=== PATIENT | female | born 1935 | race Caucasian/White ===

== ENCOUNTER → 2017-11-13 | Outpatient (CLI) | payer OTHER | LOC: FIMAGING 12:38 | PROVIDERS: ATTEND Internal Medicine | DX: Z13.820 Encounter for screening for osteoporosis (principal); M81.0 Age-related osteoporosis without current pathological fracture; I70.0 Atherosclerosis of aorta; N18.9 Chronic kidney disease, unspecified; E83.52 Hypercalcemia; Z78.0 Asymptomatic menopausal state ==

== ENCOUNTER → 2017-12-19 | Outpatient (CLI) | payer OTHER | LOC: CIMAGING 11:30 | PROVIDERS: ATTEND Internal Medicine | DX: M51.36 Other intervertebral disc degeneration, lumbar region (principal); M46.97 Unspecified inflammatory spondylopathy, lumbosacral region; I70.0 Atherosclerosis of aorta; M81.0 Age-related osteoporosis without current pathological fracture | CPT/HCPCS: 72100-PO ==

== ENCOUNTER 2018-01-17 14:06 | Observation (INO) | payer OTHER ==
[2018-01-17] MEDS ORDERED: NS 500 ML IV ONE (14:08)
--- NOTE | 2018-01-17 14:37 | CPEKG ---
Heart Rate: 52 RR Interval: 1154 P-R Interval: 192 QRSD Interval: 70 QT Interval: 436 QTC Interval: 406 P [place]: 57 QRS [place]: 26 T Wave [place]: 56 EKG Severity - NORMAL ECG - EKG Impression: SINUS RHYTHM Electronically Signed By: Joao Weaver 20-Jan-2018 10:58:16
--- NOTE | 2018-01-17 15:05 | EDPHY ---
H & P Smoking Status: Never smoked Time Seen by Provider: 01/17/18 14:08 HPI/ROS: CHIEF COMPLAINT: Syncope HISTORY OF PRESENT ILLNESS: Patient sent from Dr. Bernabe's office up stairs for evaluation after syncopal episode today. Patient has history of Alzheimer's and lives at [facility]. This morning aids noted that she was wobbly on her way to breakfast. She was walking with assistance and"melted to the floor". She was lowered to the floor by the assistants and did not fall. The time that she was unconscious is described variably as"seconds to minutes". She did have diaphoresis at the time of this event. She did ultimately wake up and was back at her baseline which is moderate to severe dementia. There is no reported recent illnesses. Patient has had no fever. No report of chest pain, shortness of breath, nausea, vomiting, diarrhea or dysuria. She does state that she"goes quite often"when asked about urinary symptoms. Daughter states that she has been a little off lately in that she has been more fatigued. REVIEW OF SYSTEMS: Constitutional: No fever, no chills. Eyes: No discharge. ENT: No sore throat. Cardiovascular: No chest pain, no palpitations. Respiratory: No cough, no shortness of breath. Gastrointestinal: No abdominal pain, no vomiting. Genitourinary: No dysuria. Musculoskeletal: No back pain. Skin: No rashes. Neurological: No headache. General Appearance: Alert, slightly sleepy Eyes: Pupils equal and round no pallor or injection. ENT, Mouth: Mucous membranes moist. Respiratory: There are no retractions, lungs are clear to auscultation. Cardiovascular: Regular rate and rhythm. No peripheral edema. Gastrointestinal: Abdomen is soft and nontender, no masses, bowel sounds normal. Neurological: Awake, cooperative, following commands, no focal neurologic deficits. Cranial nerves intact. Normal strength all 4 extremities. Skin: Warm and dry, no rashes. Musculoskeletal: Neck is supple nontender. Extremities are symmetrical, full range of motion, no edema. Psychiatric: Patient is oriented to self,"at hospital", no agitation Medical/surgical history: Alzheimer's, osteoporosis, breast cancer, Paget's disease. Surgeries include rectal prolapse, multiple procedures for Paget's disease, appendicitis, mastectomy with reconstruction. Social history: Lives in assisted care facility no smoking. (Sheets,Genevieve L) Constitutional: Initial Vital Signs Temperature (C) 37 C 01/17/18 14:43 Heart Rate 52 L 01/17/18 14:43 Respiratory Rate 16 01/17/18 14:43 Blood Pressure 132/72 H 01/17/18 14:43 O2 Sat (%) 93 01/17/18 14:43 O2 Delivery Mode Room Air Allergies/Adverse Reactions: memantine HCl [From Namenda] Allergy (Verified 01/17/18 15:05) Home Medications: Medication Instructions Recorded Acetaminophen [Tylenol 325mg (OTC)] 650 mg PO Q6 PRN 02/03/13 Acetaminophen [Tylenol Tablet] 500 mg PO Q4 PRN 02/03/13 Cholecalciferol Vit D3 [Vitamin D3 1,000 units PO DAILY 02/03/13 1000 units (OTC)] Docusate Sodium [Colace 100 MG 100 mg PO BID 02/03/13 (OTC)] Polyethylene Glycol 3350 [Miralax 8 gm PO DAILY 02/03/13 17 gm (OTC)] Fiber [Fiber Diet] 2 each PO DAILY 02/06/13 Magnesium Hydroxide [Milk of 30 ml PO DAILY PRN #300 ml 04/19/16 Magnesia (*)] Alendronate Sodium [Fosamax 70 MG 70 mg PO JUSTIN@0700 01/17/18 (*)] Donepezil HCl [Donepezil HCl] 10 mg PO DAILY 01/17/18 Medical Decision Making - Diagnostics EKG Interpretation: EKG for syncope shows normal sinus rhythm with a rate of 52 normal intervals, axis, no ST T-wave changes to suggest ischemia or infarct. See trace master. ( Genevieve Crenshaw) Imaging Results: Imaging Impressions Chest X-Ray 01/17/18 14:10 Impression: 1. Suspect emphysema. 2. No evidence for cardiac failure. Differential Diagnosis: Differential diagnosis includes but is not limited to syncope from cardiac source, arrhythmia, hypertension, electrolyte abnormality, acute coronary syndrome, infectious cause. Initial evaluation shows normal EKG with rate of 52 not suggestive of arrhythmia or sick sinus syndrome however will keep on library monitor during time in the emergency department to evaluate for symptomatic bradycardia. Initial urine dip suggestive of urinary tract infection and antibiotics started. At the time of my departure still awaiting lab tests, x-ray results and response to treatment. Plan is likely going to be admitting to [facility] if appropriate bed available. Discussed with Dr. Bueno at the time of my departure from the emergency department. (Genevieve Crenshaw) Other Provider: pt care turned over to me at shift change labs wnl ekg sinus bradycardia ua with uti imp syncope in elderly F uti plan admit tele obs pt was given dose ceftriaxone in ED (Sherry Bueno) - Data Points Laboratory Results: Laboratory Results 01/17/18 15:13 01/17/18 15:13 01/17/18 01/17/18 01/17/18 15:42 15:24 15:24 WBC RBC Hgb Hct MCV MCH MCHC RDW Plt Count MPV Neut % (Auto) Lymph % (Auto) Elbert % (Auto) Eos % (Auto) Baso % (Auto) Nucleat RBC Rel Count Absolute Neuts (auto) Absolute Lymphs (auto) Absolute Monos (auto) Absolute Eos (auto) Absolute Basos (auto) Absolute Nucleated RBC Immature Gran % Immature Gran # POC Blood Source VENOUS Patient Temperature 37.0 DEGREES DEGREES POC VBG pH 7.42 (7.31-7.42) POC VBG pCO2 45 mmHg H mmHg (40-44) POC VBG pO2 28 mmHg L mmHg (35-40) POC VBG HCO3 30 mEq/L H mEq/L (22-26) POC VBG Total CO2 31 mEq/L H mEq/L (21-27) POC VBG Base Excess 5.0 mEq/L H mEq/L (-2.5-2.5) POC Mix VBG O2 Sat 53 % L % (65-75) Turbidity POC Sodium 140 mEq/L mEq/L (135-145) Sodium POC Potassium 4.0 mEq/L mEq/L (3.3-5.0) Potassium POC Chloride 100.0 mEq/L mEq/L (97-110) Chloride Carbon Dioxide POC Total CO2 31 mEq/L mEq/L (22-31) Anion Gap POC BUN 19 mg/dL mg/dL (7-23) BUN Creatinine POC Creatinine 1.1 mg/dL H mg/dL (0.6-1.0) Estimated GFR Glucose POC Glucose 90 mg/dL mg/dL (70-100) POC Lactic Acid Joshua 1.1 mmol/L mmol/L (0.7-2.1) POC Calcium 10.1 mg/dL mg/dL (8.5-10.4) Calcium POC Total Bilirubin 0.5 mg/dL mg/dL (0.1-1.4) POC AST 28 IU/L IU/L (14-46) POC ALT 13 IU/L IU/L (9-52) POC Alk Phosphatase 64 IU/L IU/L (38-126) POC Troponin I 0.01 ng/mL ng/mL (0.00-0.08) POC Total Protein 6.8 g/dL g/dL (6.3-8.2) POC Albumin 3.5 g/dL g/dL (3.5-5.0) Specimen Hemolysis Urine RBC Urine WBC Ur Epithelial Cells Urine Bacteria Urine Mucus 01/17/18 01/17/18 01/17/18 15:13 15:13 14:25 WBC Cancelled RBC Cancelled Hgb Cancelled Hct Cancelled MCV Cancelled MCH Cancelled MCHC Cancelled RDW Cancelled Plt Count Cancelled MPV Cancelled Neut % (Auto) Cancelled Lymph % (Auto) Cancelled Elbert % (Auto) Cancelled Eos % (Auto) Cancelled Baso % (Auto) Cancelled Nucleat RBC Rel Count Cancelled Absolute Neuts (auto) Cancelled Absolute Lymphs (auto) Cancelled Absolute Monos (auto) Cancelled Absolute Eos (auto) Cancelled Absolute Basos (auto) Cancelled Absolute Nucleated RBC Cancelled Immature Gran % Cancelled Immature Gran # Cancelled POC Blood Source Patient Temperature POC VBG pH POC VBG pCO2 POC VBG pO2 POC VBG HCO3 POC VBG Total CO2 POC VBG Base Excess POC Mix VBG O2 Sat Turbidity Cancelled POC Sodium Sodium Cancelled POC Potassium Potassium Cancelled POC Chloride Chloride Cancelled Carbon Dioxide Cancelled POC Total CO2 Anion Gap Cancelled POC BUN BUN Cancelled Creatinine Cancelled POC Creatinine Estimated GFR Cancelled Glucose Cancelled POC Glucose POC Lactic Acid Joshua POC Calcium Calcium Cancelled POC Total Bilirubin POC AST POC ALT POC Alk Phosphatase POC Troponin I POC Total Protein POC Albumin Specimen Hemolysis Cancelled Urine RBC 1-3 /hpf /hpf (0-3) Urine WBC 15-25 /hpf H /hpf (0-3) Ur Epithelial Cells TRACE /lpf /lpf (NONE-1+) Urine Bacteria TRACE /hpf H /hpf (NONE SEEN) Urine Mucus TRACE /lpf /lpf (NONE-1+) Medications Given: Discontinued Medications Sodium Chloride (Ns) 500 mls @ 1,000 mls/hr IV EDNOW ONE PRN Reason: Protocol Stop: 01/17/18 14:37 Last Admin: 01/17/18 15:17 Dose: 500 mls Ceftriaxone Sodium/Dextrose (Rocephin 1 Gm (Premix)) 50 mls @ 100 mls/hr IV EDNOW ONE PRN Reason: Protocol Stop: 01/17/18 15:30 Last Admin: 01/17/18 15:28 Dose: 50 mls Point of Care Test Results: CBC CBC Collection Date 01/17/18 CBC Collection Time 15:13 WBC 8.5 RBC 4.20 HGB 13.1 HCT 40.0 PLT 256 Neut # 5.9 Neut 69.4 LYMPH # 1.7 LYMPH 20.5 Other WBC # 0.9 Other WBC 10.1 MCV 95.2 Chemistry 01/17/18 01/17/18 15:42 15:24 POC Sodium 140 mEq/L mEq/L (135-145) POC Potassium 4.0 mEq/L mEq/L (3.3-5.0) POC Chloride 100.0 mEq/L mEq/L (97-110) POC Total CO2 31 mEq/L mEq/L (22-31) POC BUN 19 mg/dL mg/dL (7-23) POC Creatinine 1.1 mg/dL H mg/dL (0.6-1.0) POC Glucose 90 mg/dL mg/dL (70-100) POC Calcium 10.1 mg/dL mg/dL (8.5-10.4) POC Total Bilirubin 0.5 mg/dL mg/dL (0.1-1.4) POC AST 28 IU/L IU/L (14-46) POC ALT 13 IU/L IU/L (9-52) POC Alk Phosphatase 64 IU/L IU/L (38-126) POC Troponin I 0.01 ng/mL ng/mL (0.00-0.08) POC Total Protein 6.8 g/dL g/dL (6.3-8.2) POC Albumin 3.5 g/dL g/dL (3.5-5.0) Blood Gas/Lactic Acid-Arterial 01/17/18 15:24 POC Blood Source VENOUS Blood Gas/Lactic Acid-Venous 01/17/18 15:24 POC VBG pH 7.42 (7.31-7.42) POC VBG pCO2 45 mmHg H mmHg (40-44) POC VBG pO2 28 mmHg L mmHg (35-40) POC VBG HCO3 30 mEq/L H mEq/L (22-26) POC VBG Total CO2 31 mEq/L H mEq/L (21-27) POC VBG Base Excess 5.0 mEq/L H mEq/L (-2.5-2.5) POC Mix VBG O2 Sat 53 % L % (65-75) POC Lactic Acid Joshua 1.1 mmol/L mmol/L (0.7-2.1) Urine Dip Collection Date 01/17/18 Collection Time 14:25 Specific [place] (1.002-1.030) 1.015 PH (5.0-7.5) 7.5 Leukocytes (Negative) 3+ Nitrites (Negative) Positive Protein (Negative) Negative Glucose (Negative) Negative Ketones (Negative) Negative Urobilnogen (0.2-1.0 EU) 0.2 Bilirubin (Negative) Negative Blood (Negative) Negative Departure - Departure Disposition: [facility] Inpatient Acute Condition: Fair
[2018-01-17] MEDS ORDERED: ONDANSETRON DISINTEGRATING 4 MG TAB PO PRN (17:02)
[2018-01-17] MEDS ORDERED: ONDANSETRON 4 MG/2 ML VIAL IVP PRN (17:02)
[2018-01-17] MEDS ORDERED: ACETAMINOPHEN 325 MG TAB PO PRN (17:02)
[2018-01-17] MEDS ORDERED: NS 1,000 ML IV SCH (19:30)
--- NOTE | 2018-01-17 20:53 | GHP ---
[f rep st] HISTORY AND PHYSICAL DATE OF ADMISSION: 01/17/2018 CHIEF COMPLAINT: Syncope. HISTORY OF PRESENT ILLNESS: Obtained from clinic notes. The patient does not recall episode, as she is an 82-year-old female with dementia, living in a memory unit who had a syncopal episode today. Apparently, she was walking to breakfast with assistance from staff at [facility] and she suddenly passed out. They caught her. She became very diaphoretic. She awoke without confusion or recollection of the event. Upon my interview, she is eating dinner without any complaints. She does not endorse chest pain, shortness of breath, dizziness, or lightheadedness. Her daughter states she would not likely complain of any symptoms. Baseline creatinine is 1.1. Per review of [place], she had prior EKG showing a heart rate of 48. REVIEW OF SYSTEMS: I completed a 10-point review of systems, negative except as noted in HPI. PAST MEDICAL HISTORY: Breast cancer, rectal prolapse, Alzheimer disease, skin cancer, Paget's disease, osteoporosis. PAST SURGICAL HISTORY: Rectopexy, mastectomy. FAMILY HISTORY: Noncontributory. SOCIAL HISTORY: Lives at [facility]. Her daughter is her MD JONNA. MEDICATIONS: Aricept, Fosamax. ALLERGIES: Namenda. PHYSICAL EXAM: VITAL SIGNS: Temperature 37, blood pressure 132/70, heart rate was 50s, now 68. Respirations 16, 96% on room air. GENERAL: She is well appearing, smiling, eating dinner. No acute distress. HEENT: Regular rate and rhythm. No murmur. LUNGS: Clear. ABDOMEN: Soft. She has a ventral hernia on the right. SKIN: Warm, dry. NEURO: No focal deficits. PSYCH: She is alert. She is answering questions appropriately. LABS: Sodium 140, potassium 4.0, chloride 100, carbon dioxide 31. Creatinine is 1.1 which is baseline. Calcium is 10.1, total bili 0.5. Troponin 0.01. Urine: 15-25 WBCs, trace bacteria. WBCs pending. EKG was personally reviewed by me, normal sinus rhythm, heart rate 52. Chest x-ray was personally reviewed by me, hyperexpanded, suspected emphysema per Radiology. ASSESSMENT AND PLAN: 1. Syncope: Differential is broad with arrhythmia versus dehydration versus infection. She is afebrile. She has mild pyuria on her urinalysis. She cannot reliably endorse symptoms per her daughter. Will empirically treat. Urine culture is pending. Give gentle IV fluids tonight. Repeat troponin. Monitor on EKG. Could consider echocardiogram but this can likely be done as an outpatient. 2. History of rectal prolapse: Prior rectopexy. 3. Alzheimer's: Resume home meds. She lives at [facility]. 4. Diet regular. 5. Deep vein thrombosis prophylaxis: Lovenox. 6. Code status. She is DNR. Daughters is MD COYLE. DISPOSITION: The patient warrants observation admission given acute syncope, warranting telemetry, serial troponins, IV antibiotics. /[id number]/MODL MTDD
[2018-01-18 08:44] VITALS: BP 151/81
[2018-01-18] MEDS ORDERED: ENOXAPARIN 40 MG/0.4 ML SYR SC SCH (09:00)
[2018-01-18] MEDS ORDERED: DONEPEZIL HCL 5 MG TAB PO SCH (09:45)
--- NOTE | 2018-01-18 09:45 | PDIAF ---
- Diagnosis Diagnosis: UTI, Syncope Code Status: Do Not Resuscitate - Medication Management Discharge Medications: Medications to Continue on Transfer Acetaminophen [Tylenol 325mg (*)] 650 mg PO Q6 PRN 02/03/13 [Last Taken Unknown] Acetaminophen [Tylenol ES 500 mg (*)] 500 mg PO Q4 PRN 02/03/13 [Last Taken 500] Cholecalciferol Vit D3 [Vitamin D3 (*)] 1,000 units PO DAILY 02/03/13 [Last Taken 01/17/18] Docusate Sodium [Colace 100 MG (*)] 100 mg PO BID 02/03/13 [Last Taken 01/17/18] Polyethylene Glycol 3350 [Miralax 17 gm (*)] 8 gm PO DAILY 02/03/13 [Last Taken 02/09/13 8gm] Fiber [Fiber Diet] 2 each PO DAILY 02/06/13 [Last Taken 01/17/18] Magnesium Hydroxide [Milk of Magnesia (*)] 30 ml PO DAILY PRN #300 ml 04/19/16 [ Last Taken Unknown] Alendronate Sodium [Fosamax 70 MG (*)] 70 mg PO JUSTIN@0700 01/17/18 [Last Taken ] Donepezil HCl 10 mg PO DAILY 01/17/18 [Last Taken 01/17/18] Cephalexin [Keflex (*)] 500 mg PO BID #10 cap 01/18/18 [Last Taken Unknown] [facility] Antibiotic Stop Date: 01/23/18 Discharge Medications: Refer to the Discharge Home Medication list for PRN reason. - Orders Services needed: Home Care, Registered Nurse, Physical Therapy, Occupational Therapy Home Care Face to Face: I certify that this patient was under my care and that I had the required [id number] encounter meeting the encounter requirements on the discharge day. My findings support the fact that the patient is homebound as defined in Home Care Face to Face Continued: CMS Chapter 7 Medicare Benefits Manual 30.1.1 , The condition of the patient is such that there exists a normal inability to leave home and consequently, leaving home would require a considerable and taxing effort. Diet Recommendation: no restrictions on diet Additional Instructions: Urine culture pending - please follow-up result If syncope episodes become recurrent, recommend outpatient consultation at [facility] for Holter/Event monitor and consideration of pacemaker - Follow Up Care Current Providers and Referrals: Jackson Bernabe MD [Primary Care Provider] - As per Instructions
--- NOTE | 2018-01-18 10:51 | GDS ---
[f rep st] DISCHARGE SUMMARY DISCHARGE DIAGNOSES: 1. Syncope. 2. Bradycardia. 3. Urinary tract infection. 4. Dehydration. 5. Advanced dementia. HISTORY: The patient is an 82-year-old female with advanced dementia who lives in a memory care unit at the [facility]. She presented after a syncopal event that occurred while she was walking to [facility] with the assistance of staff when suddenly she passed out, and she was caught by staff. She was d iaphoretic. She awoke relatively rapidly, but no further history is available due to her advanced de mentia. She was admitted for observation, and since that time, has had no further complaints. She h as ambulated to the bathroom without any further difficulties. She was diagnosed with possible urinary tract infection. Symptom history is difficult given her cindy ntia. Urine culture is pending. She got 2 doses of IV ceftriaxone in the hospital and will complete a course of oral Keflex. She does run a little bradycardic with heart rates here in the high 40s. It is unclear if this is co ntributing to her syncopal events. She does not have a long-standing history of recurrent syncopal e vent, so I am hopeful this is perhaps just a one-time occurrence, and daughter does report a long-sta nding history of relative bradycardia. If, however, syncopal events do become more frequent and/or r ecurrent and/or dangerous regarding fall risk at her memory care unit, pacemaker could be considered. This would, of course, need to be considered against her dementia history. Therefore, if syncopal events do become recurrent and/or dangerous, distressing, recommend outpatient followup with [facility] for event and Holter monitoring. DISCHARGE MEDICATIONS: Please see computerized record for full detailed list. New medications: Kef nathaly 500 mg p.o. b.i.d. for 5 more days. ADDITIONAL DISCHARGE INSTRUCTIONS: 1. Urine culture pending at discharge. Please follow up result. 2. If syncopal episodes become recurrent, recommend outpatient consultation with [facility] for H olter and event monitoring and consideration of pacemaker. Patient was seen and examined by me on the day of discharge. /[id number]/MODL
--- NOTE | 2018-01-18 11:29 | ASMTCMCOM ---
CM Note CM Note Notes: Spoke w/RN, pt returning to [facility], no other needs identified. CM available for any changes. DC Plan: Independent Date Signed: 01/18/2018 11:29 AM Electronically Signed By:Ronel Ortega RN
[2018-01-18] MEDS ORDERED: DOCUSATE SODIUM 100 MG CAP PO SCH (21:00)
== END 2018-01-18 11:37 ==
LOC: CED 14:06 → CEDHOLD 16:28 → F3E 18:12
PROVIDERS: ADMIT Internal Medicine; ATTEND Internal Medicine
DX: R55 Syncope and collapse (principal); R00.1 Bradycardia, unspecified; N39.0 Urinary tract infection, site not specified; E86.0 Dehydration; G30.9 Alzheimer's disease, unspecified; F02.80 Dementia in other diseases classified elsewhere, unspecified severity, without behavioral disturbance, psychotic disturbance, mood disturbance, and anxiety
CPT/HCPCS: 71046; 93005; 96365; 99285; G0378; J0696; 80053-PO; 83605-PO; 84484-PO

== ENCOUNTER → 2018-07-03 | Outpatient (CLI) | payer OTHER | LOC: CIMAGING 13:59 | PROVIDERS: ATTEND Internal Medicine | DX: M48.54XA Collapsed vertebra, not elsewhere classified, thoracic region, initial encounter for fracture (principal); M54.9 Dorsalgia, unspecified; M81.0 Age-related osteoporosis without current pathological fracture; F03.90 Unspecified dementia, unspecified severity, without behavioral disturbance, psychotic disturbance, mood disturbance, and anxiety | CPT/HCPCS: 72070-PO; 72100-PO ==